=== PATIENT | male | born 1975 | race Caucasian/White ===

== ENCOUNTER 2017-07-05 14:58 | Inpatient (IN) | payer MEDICAID ==
[~2017-07-05] VITALS: Ht 167.6 cm; Wt 123.4 kg
[2017-07-05 15:09] VITALS: BP 153/101
--- NOTE | 2017-07-05 15:28 | NUR ---
Patient ambulated to bed 3.
--- NOTE | 2017-07-05 15:34 | NUR ---
Patient being evaluated by physician at bedside.
[2017-07-05] MEDS ORDERED: NACL 0.9% 3,000 ML IV ONE (15:35)
[2017-07-05] MEDS ORDERED: INSULIN HUMAN REGULAR 100 UNITS/ML 10 ML VIAL SUBQ ONE (15:35)
--- NOTE | 2017-07-05 15:41 | NUR ---
ABG DRAWN ON RA ON LR WITHOUT INCIDENT AND AT 1550 RESULTS GIVEN TO
--- NOTE | 2017-07-05 15:41 | NUR ---
RT at bedside for ABG
--- NOTE | 2017-07-05 15:44 | NUR ---
XRAY AT BEDSIDE.
--- NOTE | 2017-07-05 15:52 | NUR ---
LAB AND GABRIELA GEORGES SECHRIST AWARE OF ACCHECK READING OF "HIGH"
--- NOTE | 2017-07-05 16:02 | NUR ---
41M BIB SELF C/O CONSTANT THIRST AND BLURRED VISION X 4 DAYS; PATIENT DENIES OF ANY MEDICAL HISTORY; ACCHECK IN TRIAGE READ HIGH; SKIN IS PINK/WARM/DRY; AAOX4 WITH EVEN AND STEADY GAIT; NO ACUTE NEURO DEFICITS NOTED; RR ARE EVEN AND UNLABORED; LUNGS CLEAR BL; HR EVEN AND REGULAR; ABD SOFT AND NON TENDER; DENIES N/V/D; PT DENIES ANY FEVER, CP, SOB, OR COUGH AT THIS TIME; PATIENT STATES PAIN OF 0/10 AT THIS TIME; VSS; PATIENT POSITIONED FOR COMFORT; HOB ELEVATED; ALL NEEDS MET AT THIS TIME; ER MD AWARE OF PT STATUS
[2017-07-05 16:25] LABS: HEMATOCRIT 40.6 % (36-52); HEMOGLOBIN 15.9 g/dL (12.0-18.0); MEAN CORPUSCULAR HEMOGLOBIN 31 pg (27-31); MEAN CORPUSCULAR HGB CONC 39 g/dL (33-37); MEAN CORPUSCULAR VOLUME 78 fL (80-94); PLATELET COUNT (AUTO) 280 K/uL (140-450); RED CELL DISTRIBUTION WIDTH 12.6 % (11.6-13.7); WHITE BLOOD COUNT (AUTO) 7.2 K/uL (4.8-10.8)
[2017-07-05 16:40] LABS: BARBITURATE, URINE NEG. ng/ml (NEG <=200); BENZODIAZEPINE, URINE NEG. ng/mL (NEG <=200); CANNABINOID, URINE NEG. ng/mL (NEG <=50); COCAINE, URINE NEG. ng/mL (NEG <=300); OPIATE, URINE NEG. ng/mL (NEG <=2000); PHENCYCLIDINE SCREEN,URINE NEG. ng/mL (NEG <=25)
--- NOTE | 2017-07-05 16:42 | NUR ---
LAB ON PHONE WITH MD OCHOA SECHRIST REGARDING SERUM BLOOD GLUCOSE; EMR ANALYST REPORTS SERUM BLOOD GLUCOSE "TOO MILKY" FOR ACCURANCE READING
[2017-07-05 16:51] LABS: LYMPHOCYTES % (MANUAL) 35 % (20-46); MONOCYTES % (MANUAL) 4 % (5-12)
[2017-07-05 17:06] LABS: APPEARANCE,URINE CLEAR (CLEAR); BILIRUBIN,URINE NEGATIVE (NEGATIVE); BLOOD, URINE TRACE-L (NEGATIVE); COLOR,URINE YELLOW (YELLOW); LEUKOCYTE ESTERASE ,URINE NEGATIVE (NEGATIVE); NITRITE, URINE NEGATIVE (NEGATIVE); UGLUCOSE 3+ (NEGATIVE)
[2017-07-05 17:37] LABS: RBC,URINE 0-5 (RARE) /HPF (0-5); WBC,URINE 0-5 (RARE) /HPF (0-5)
[2017-07-05] MEDS ORDERED: ACETAMINOPHEN 325 MG TAB PO PRN (18:10)
[2017-07-05] MEDS ORDERED: HYDROcodone/APAP 5/325 MG 1 TAB TAB PO PRN (18:10)
[2017-07-05] MEDS ORDERED: ONDANSETRON 4 MG/2 ML VIAL IVP PRN (18:10)
[2017-07-05] MEDS ORDERED: LORazepam 2 MG/ML VIAL IVP PRN (18:10)
[2017-07-05] MEDS ORDERED: DEXTROSE 50% 50 ML SYR IVP PRN (18:10)
--- NOTE | 2017-07-05 18:11 | NUR ---
attemped to give report; kaley rn will call back "after discharge"; will follow up
--- NOTE | 2017-07-05 18:28 | NUR ---
Patient will be admitted to care of [facility]. Admited to Med Surg. Will go to room 106B. Belongings list completed. Report to Kathya SAUNDERS.
[2017-07-05 18:50] VITALS: BP 155/97
--- NOTE | 2017-07-05 18:50 | NUR ---
RECEIVED PT FROM ER, AAOX4, LATVIAN SPEAKING ONLY. NO SOB NOTED. NO C/O PAIN AT THIS TIME. STABLE VITAL SIGNS. WILL ENDORSE TO NEXT SHIFT NURSE TO START THE ADMISSION PROCESS.
--- NOTE | 2017-07-05 19:00 | NUR ---
RECEIVED REPORT FROM AM NURSE. Admitted from ER, with chief complaint of INCREASED THIRST, URINARY FREQUENCY, BURNING TO EYE FOR 4 DAYS. 41 y/o, Male, RESTING IN BED, AOX4, QATARI SPEAKING WITH LITTLE MARTINIQUAIS, ABLE TO VERBALIZE NEEDS. NURSE EPIDEMIOLOGIST SERVICE USED DURING ADMISSION PROCESS, STEVENSON [id number]. PT DENIES CHEST PAIN, SOB OR S/S OF ACUTE DISTRESS. IV ACCESS ASYMPTOMATIC, PATENT AND INTACT. SALINE LOCKED. DISCUSSED AND REVIEWED PLAN OF CARE WITH PT. PT VERBALIZED UNDERSTANDING. oriented to call light, bed, phone,television, bathroom, smoking policy, visiting hours, procedures, ID bracelet on. Belongings list checked. ALL NEEDS MET. SAFETY MEASURES ENSURED. CALL LIGHT WITHIN REACH. WILL CONTINUE TO MONITOR.
[2017-07-05 20:00] VITALS: BP 135/79
[2017-07-05] MEDS: BLOOD GLUCOSE MONITORING 1 DEV DEV FS SCH (21:12)
[2017-07-05] MEDS: LISINOPRIL 10 MG TAB PO SCH (21:12)
[2017-07-05] MEDS: INSULIN LISPRO SLIDING SCALE 100 UNITS/ML VIAL SUBQ PRN (21:51)
--- NOTE | 2017-07-05 21:51 | NUR ---
ADMINISTERED DUE MEDICATIONS WITH EDUCATION. INSULIN COVERAGE ADMINISTERED WITH EVENING SNACK. PT VERBALIZED UNDERSTANDING, TOLERATED MEDS WELL. ALL NEEDS MET. SAFETY MEASURES ENSURED. CALL LIGHT WITHIN REACH. WILL CONTINUE TO MONITOR.
[2017-07-05 22:13] LABS: CHLORIDE 96 mmol/L (98-107); POTASSIUM 4.1 mmol/L (3.5-5.1); SODIUM SERUM 130 mmol/L (136-145)
[2017-07-05 22:14] LABS: ANION GAP 19.1 (8-16)
[2017-07-05 22:15] LABS: GFR ARICAN-AMERICAN 107 mL/min (>90); GLUCOSE 562 mg/dL (74-106); UREA NITROGEN, BLOOD 14 mg/dL (7-18)
[2017-07-05 22:16] LABS: ALBUMIN 4.6 g/dL (3.4-5.0); ASPARTATE AMINOTRANSFERASE 50 U/L (15-37); LIPASE 24 U/L (73-393); TOTAL BILIRUBIN > 0.1 mg/dL (0.0-1.0)
--- NOTE | 2017-07-05 23:00 | NUR ---
CALLED DR ESPINOZA, MADE AWARE OF LACTIC ACID 2.6, BMP RESULTS FROM TIME 1515: SODIUM 130, CHLORIDE 96, AND GLUCOSE 562. MADE MD AWARE RECENT BLOOD GLUCOSE WAS 329, WITH INSULIN COVERAGE ADMINISTERED. AND THAT THERE IS NO MAINTENANCE FLUIDS ORDERED AT THIS TIME. ORDERS RECEIVED FOR NS AT 100ML. ORDERS PENDING, WILL CARRY OUT.
[2017-07-05] MEDS: NACL 0.9% 1,000 ML IV SCH (23:12)
[2017-07-06] VITALS: BP 128/72
--- NOTE | 2017-07-06 01:00 | NUR ---
PT SLEEPING COMFORTABLY. NO S/S OF ACUTE DISTRESS. ALL NEEDS MET. SAFETY MEASURES ENSURED. CALL LIGHT WITHIN REACH. WILL CONTINUE TO MONITOR.
[2017-07-06] MEDS ORDERED: PNEUMOCOCCAL VACCINE 23 MCG/0.5 ML VIAL IMVAC SCH (04:10)
--- NOTE | 2017-07-06 04:30 | NUR ---
PT SLEEPING COMFORTABLY. NO S/S OF ACUTE DISTRESS. ALL NEEDS MET. SAFETY MEASURES ENSURED. CALL LIGHT WITHIN REACH. WILL CONTINUE TO MONITOR.
[2017-07-06 06:29] LABS: HEMATOCRIT 35.9 % (36-52); HEMOGLOBIN 13.3 g/dL (12.0-18.0); MEAN CORPUSCULAR HEMOGLOBIN 29 pg (27-31); MEAN CORPUSCULAR HGB CONC 37 g/dL (33-37); MEAN CORPUSCULAR VOLUME 80 fL (80-94); PLATELET COUNT (AUTO) 203 K/uL (140-450); RED BLOOD CELL COUNT(AUTO) 4.51 MIL/uL (4.20-6.10); WHITE BLOOD COUNT (AUTO) 6.4 K/uL (4.8-10.8)
[2017-07-06] MEDS: BLOOD GLUCOSE MONITORING 1 DEV DEV FS SCH ×4 (06:42→20:47)
[2017-07-06] MEDS: INSULIN LISPRO SLIDING SCALE 100 UNITS/ML VIAL SUBQ PRN ×4 (06:43→20:19)
--- NOTE | 2017-07-06 06:50 | NUR ---
PNA VAC ADMINISTERED WITH EDUCATION ORDERED. INSULIN COVERAGE ADMINISTERED ORDERED. PT VERBALIZED UNDERSTANDING, TOLERATED MEDS WELL. PT ABLE TO AMBULATE TO THE RESTROOM INDEPENDENTLY. ALL NEEDS MET.
[2017-07-06] MEDS: GEMFIBROZIL 600 MG TAB PO SCH ×2 (07:11→16:35)
--- NOTE | 2017-07-06 07:12 | NUR ---
ENDORSED PLAN OF CARE TO AM NURSE. CONDITION STABLE.
[2017-07-06 07:14] LABS: EOSINOPHILS % (MANUAL) 3 % (0-4); LYMPHOCYTES % (MANUAL) 29 % (20-46); MONOCYTES % (MANUAL) 4 % (5-12)
--- NOTE | 2017-07-06 07:28 | NUR ---
RECEIVED REPORT FROM PM RN. PT AWAKE, ALERT AND ORIENTED. RESP EVEN AND UNLABORED. PT DENIES PAIN OR DISCOMFORT. NO S/S OF DISTRESS, SHORTNESS OF BREATH, OR RESTLESSNESS. IV INTACT INFUSING AT 100 ML/HR, NO SIGN OF SWELLING OR REDNESS. DISCUSSED PLAN OF CARE, PT VERBALIZED UNDERSTANDING. SAFETY MEASURES IN PLACED. BED LOCKED ON LOW POSITION. CALL LIGHT WITHIN REACH. WILL CONTINUE TO MONITOR.
[2017-07-06 08:00] VITALS: BP 131/84
[2017-07-06] MEDS ORDERED: metFORMIN 500 MG TAB PO SCH (08:00)
--- NOTE | 2017-07-06 08:05 | NUR ---
PATIENT HAS BEEN SCREENED AND CATEGORIZED HIGH NUTRITION RISK. PATIENT WILL BE SEEN WITHIN 1-2 DAYS OF ADMISSION. 07/05/17-07/06/[address]
[2017-07-06] MEDS: HYDROCHLOROTHIAZIDE 25 MG TAB PO SCH (08:33)
[2017-07-06] MEDS ORDERED: PIOGLITAZONE 30 MG TAB PO SCH ×2 (09:00)
[2017-07-06] MEDS: NACL 0.9% 1,000 ML IV SCH ×3 (09:37→23:17)
--- NOTE | 2017-07-06 10:48 | NUR ---
PT RESTING COMFORTABLY. FAMILY AT BEDSIDE. NO SIGNS OF RESTLESSNESS, SHORTNESS OF BREATH, OR DISTRESS. DENIES PAIN. SAFETY MEASURES IN PLACED. BED ON LOCKED, LOW POSITION. CALL LIGHT WITHIN REACH. SIDE RAILS UP. WILL CONTINUE TO MONITOR.
--- NOTE | 2017-07-06 11:44 | NUR ---
PT BLOOD SUGAR AT 402. PT AAO. NO SIGNS OF DISTRESS. DR Maru ESPINOZA PAGED PER SLIDING SCALE ORDERED.
--- NOTE | 2017-07-06 12:05 | NUR ---
PAGED DR Maru ESPINOZA AGAIN PER PROTOCOL. AWAITING CALL BACK.
--- NOTE | 2017-07-06 12:12 | NUR ---
DR Maru ESPINOZA CALLED BACK, STATED TO CALL DR CARROLL FOR FURTHER INSTRUCTIONS.
--- NOTE | 2017-07-06 12:16 | NUR ---
PAGED DR CARROLL PER DR ESPINOZA. AWAITING CALL BACK.
--- NOTE | 2017-07-06 12:27 | NUR ---
REPEAT BLOOD GLUCOSE 389. WILL GIVE INSULIN PER SLIDING SCALE.
--- NOTE | 2017-07-06 15:04 | NUR ---
07/06/17 RD INITIAL ASSESSMENT COMPLETED PLEASE REFER TO NUTRITION ASSESSMENT UNDER CARE ACTIVITY FOR ESTIMATED NUTRITIONAL NEEDS. 1. CONTINUE 60 GM CONSISTENT CARBOHYDRATE DIET 2. PROVIDE NUTRITION THERAPY EDUCATION NEEDED 3. RD TO FOLLOW UP WITHIN 2-3 DAYS; HIGH RISK LESVIA [address]
--- NOTE | 2017-07-06 15:12 | NUR ---
PT SITTING WATCHING TV. DENIES PAIN OR DISCOMFORT. NO S/S OF DISTRESS, SHORTNESS OF BREATH, OR RESTLESSNESS. SAFETY MEASURE IN PLACED. WILL CONTINUE TO MONITOR.
[2017-07-06] MEDS ORDERED: INSULIN DETEMIR 100 UNITS/ML 10 ML VIAL SUBQ SCH (15:59)
[2017-07-06 16:00] VITALS: BP 117/70
--- NOTE | 2017-07-06 16:04 | NUR ---
DR CARROLL AT BEDSIDE.
[2017-07-06] MEDS: metFORMIN 500 MG TAB PO SCH (16:35)
--- NOTE | 2017-07-06 18:36 | NUR ---
PT EATING. DENIES PAIN OR DISCOMFORT. NO S/S OF DISTRESS, SOB, RESTLESSNESS. IV FLUID CONTINUOS, SITE WNL. RESP EVEN AND UNLABORED. WILL CONTINUE TO MONITOR.
[2017-07-06 19:06] LABS: POTASSIUM 3.9 mmol/L (3.5-5.1)
[2017-07-06 19:07] LABS: ANION GAP 17.9 (8-16)
[2017-07-06 19:08] LABS: CREATININE 0.4 mg/dL (0.7-1.3)
[2017-07-06 19:09] LABS: MAGNESIUM 1.6 mg/dL (1.8-2.4); PHOSPHORUS 2.9 mg/dL (2.5-4.9)
--- NOTE | 2017-07-06 19:38 | NUR ---
RECEIVED PT ON BED TALKING TO FAMILY MEMBERS AT BEDSIDE, VITAL SIGNS STABLE, DENIES ANY PAIN, IVF INFUSING WELL, POC DISCUSSED, CALL LIGHT WITHIN REACH.
--- NOTE | 2017-07-06 19:38 | NUR ---
PT ENDORSED TO PM NURSE FOR CONTINUITY OF CARE. PT IS STABLE.
[2017-07-06] MEDS: LISINOPRIL 10 MG TAB PO SCH (20:17)
--- NOTE | 2017-07-06 20:20 | NUR ---
BLOOD SUGAR CHECKED WITH 321 RESULT,COVERAGE GIVEN, SNACK PROVIDED, DUE PO MEDICATION TAKEN, ALL NEEDS ATTENDED.
[2017-07-07] VITALS: BP 128/74
--- NOTE | 2017-07-07 | NUR ---
PT SLEEPING, EASILY AROUSABLE, VITAL SIGNS STABLE, DENIES ANY PAIN OR SOB, IVF INFUSING WELL, CONTINUE TO MONITOR CLOSELY.
--- NOTE | 2017-07-07 03:00 | NUR ---
ROUNDED ON PT, SLEEPING, NO SIGNS OF DISTRESS, MONITORED CLOSELY.
[2017-07-07] MEDS: NACL 0.9% 1,000 ML IV SCH ×2 (05:00→15:00)
--- NOTE | 2017-07-07 05:20 | NUR ---
PT AMBULATED TO BR WITH STEADY GAIT, VOIDED FREELY, URINE SPECIMEN SENT TO LAB FOR UDS TEST, BLOOD SUGAR CHECKED WITH 301 RESULT, WILL GIVE COVERAGE, PT DENIES ANY PAIN AND SOB, IVF INFUSING WELL, MONITORED CLOSELY.
[2017-07-07 06:28] LABS: HEMATOCRIT 40.2 % (36-52); HEMOGLOBIN 13.7 g/dL (12.0-18.0); MEAN CORPUSCULAR HEMOGLOBIN 27 pg (27-31); MEAN CORPUSCULAR HGB CONC 34 g/dL (33-37); MEAN CORPUSCULAR VOLUME 79 fL (80-94); PLATELET COUNT (AUTO) 219 K/uL (140-450); RED BLOOD CELL COUNT(AUTO) 5.07 MIL/uL (4.20-6.10); RED CELL DISTRIBUTION WIDTH 13.1 % (11.6-13.7); WHITE BLOOD COUNT (AUTO) 6.9 K/uL (4.8-10.8)
[2017-07-07 06:30] LABS: BARBITURATE, URINE NEG. ng/ml (NEG <=200); BENZODIAZEPINE, URINE NEG. ng/mL (NEG <=200); CANNABINOID, URINE NEG. ng/mL (NEG <=50); COCAINE, URINE NEG. ng/mL (NEG <=300); OPIATE, URINE NEG. ng/mL (NEG <=2000); PHENCYCLIDINE SCREEN,URINE NEG. ng/mL (NEG <=25)
[2017-07-07] MEDS: GEMFIBROZIL 600 MG TAB PO SCH ×2 (06:45→16:35)
[2017-07-07] MEDS: INSULIN LISPRO SLIDING SCALE 100 UNITS/ML VIAL SUBQ PRN ×4 (06:48→21:35)
[2017-07-07] MEDS: BLOOD GLUCOSE MONITORING 1 DEV DEV FS SCH ×4 (06:49→21:32)
--- NOTE | 2017-07-07 06:50 | NUR ---
DUE PO MEDICATION TAKEN, COVERAGE OF 8 UNITS GIVEN FOR BS OF 301, IVF INFUSING WELL, MONITORED CLOSELY.
--- NOTE | 2017-07-07 07:25 | NUR ---
PT SLEEPING, NO SIGNS OF DISTRESS, REPORT GIVEN TO RN ALEJANDRO FOR CONTINUITY OF CARE.
--- NOTE | 2017-07-07 07:30 | NUR ---
RECEIVED REPORT FROM PM RN. PT SLEEPING AROUSES EASILY. RESP EVEN AND UNLABORED. PT DENIES PAIN OR DISCOMFORT. NO S/S OF DISTRESS, SHORTNESS OF BREATH, OR RESTLESSNESS. IV INTACT INFUSING AT 100 ML/HR, NO SIGN OF SWELLING OR REDNESS. SKIN IS INTACT, WARM AND DRY. DISCUSSED PLAN OF CARE, PT VERBALIZED UNDERSTANDING. SAFETY MEASURES IN PLACED. BED LOCKED ON LOW POSITION. CALL LIGHT WITHIN REACH. WILL CONTINUE TO MONITOR
[2017-07-07 07:33] LABS: EOSINOPHILS % (MANUAL) 2 % (0-4); LYMPHOCYTES % (MANUAL) 33 % (20-46); MONOCYTES % (MANUAL) 6 % (5-12)
[2017-07-07 08:00] VITALS: BP 136/79
[2017-07-07] MEDS: PIOGLITAZONE 15 MG TAB PO SCH (08:37)
[2017-07-07] MEDS: HYDROCHLOROTHIAZIDE 25 MG TAB PO SCH (08:37)
[2017-07-07] MEDS: metFORMIN 500 MG TAB PO SCH ×3 (08:37→16:35)
[2017-07-07] MEDS: INSULIN DETEMIR 100 UNITS/ML 10 ML VIAL SUBQ SCH (08:40)
--- NOTE | 2017-07-07 09:38 | NUR ---
PT SITTING, FAMILY AT BEDSIDE. NO S/S OF DISTRESS, SOB, OR RESTLESSNESS. DENIES PAIN OR DISCOMFORT. SAFETY MEASURES IN PLACED. CALL LIGHT WITHIN REACH. WILL CONTINUE TO MONITOR.
--- NOTE | 2017-07-07 10:35 | NUR ---
NEW ONSET TYPE2 DIABETES TEACHING DONE VIA TELEPHONE FLOOR MANAGER #[id number], HAND OUTS GIVEN - TYPE2 DIABETES MELITIS, DIABETES AND EXERCISE, DIABETES MELITIS AND FOOD, HOW TO AVOID DIABETES PROBLEMS, TIPS FOR EATING AWAY FROM HOME IF YOU HAVE DIABETES. MEDICATION INFORMATION FOR LEVEMIRE, METFORMIN AND PIOGLITAZONE. PT VERBALIZED FULL UNDERSTANDING. PT GIVEN OPPORTUNITY TO ASK QUESTIONS.
--- NOTE | 2017-07-07 11:05 | NUR ---
CM NOTE CHART REVIEW DONE. DIABETIC TEACHING FOR NEW ONSET DIABETES DONE BY NURSE BEDSIDE. SEEN BY PROTEIN SPECIALIST BEDSIDE AND IMPORTANCE OF FOLLOW UP WITH PHYSICIAN, OBTAINING BLOOD GLUCOSE MONITOR EMPHASIZED.
--- NOTE | 2017-07-07 12:15 | NUR ---
DR ESPINOZA AT BEDSIDE
--- NOTE | 2017-07-07 13:20 | NUR ---
PT'S FAMILY MEMBER AT BEDSIDE. PT EATING LUNCH BROUGHT FROM HOME. NO S/S DISTRESS. DENIES PAIN OR DISCOMFORT. SAFETY MEASURES IN PLACED. WILL CONTINUE TO MONITOR. Addendum: 07/07/17 at 1325 by Tari Neal RN DISREGARD ABOVE NOTE. ENTERED IN WRONG PT.
--- NOTE | 2017-07-07 13:25 | NUR ---
PT SITTING WATCHING TV. DENIES PAIN OR DISCOMFORT. NO S/S DISTRESS. SAFETY MEASURE IN PLACED. WILL CONTINUE TO MONITOR.
--- NOTE | 2017-07-07 15:30 | NUR ---
PT IN BED, RESTING COMFORTABLY. DENIES DISCOMFORT OR NEEDS. NO S/S DISTRESS, SOB, OR RESTLESSNESS. SAFETY MEASURES IN PLACED. CALL LIGHT WITHIN REACH. BED ON LOW POSITION. SIDE RAILS UP. WILL CONTINUE TO MONITOR.
[2017-07-07 16:00] VITALS: BP 133/95
[2017-07-07] MEDS ORDERED: MAG SULF 2000 MG/WATER PREMIX 50 ML IV SCH (16:00)
--- NOTE | 2017-07-07 17:50 | NUR ---
FAMILY MEMBER AT BEDSIDE. PT DENIES PAIN OR NEEDS. NO S/S OF DISTRESS. SAFETY MEASURES IN PLACED. WILL CONTINUE TO MONITOR.
[2017-07-07 18:04] LABS: CREATININE 0.8 mg/dL (0.7-1.3)
[2017-07-07 18:05] LABS: ANION GAP 13.9 (8-16); POTASSIUM 3.9 mmol/L (3.5-5.1)
--- NOTE | 2017-07-07 19:22 | NUR ---
ENDORSED CARE TO PM NURSE FOR CONTINUITY OF CARE. PT IS STABLE
--- NOTE | 2017-07-07 19:23 | NUR ---
RECD. RESTING IN BED, AWAKE, A/OX4, OBESE. RESPIRATION EVEN AND UNLABORED. IV OF NS AT 100 ML/HR INFUSING RIGHT AC G20. CONVERSING WITH VISITORS AT THE BEDSIDE. PLAN OF CARE FOR THE SHIFT DISCUSSED. VERBALIZED UNDERSTANDING. DENIES PAIN 0/10.
--- NOTE | 2017-07-07 20:00 | NUR ---
Patient's Plan of Care was discussed and reviewed with SUPPORT WORKER: DYAN
[2017-07-07] MEDS: LISINOPRIL 10 MG TAB PO SCH (21:31)
--- NOTE | 2017-07-07 21:32 | NUR ---
SNACK GIVEN FOR THE NIGHT. ENCOURAGE TO EXERCISE, INQUIRE ON MD WHAT KIND HE CAN DO AND TO EAT HEALTHY, MORE ON FRUITS AND VEGETABLES, AVOID FOODS HIGH IN SUGAR CONTENT LIKE PASTRIES, CAKES, PUDDINGS, SODA. VERBALIZED UNDERSTANDING.
--- NOTE | 2017-07-07 23:45 | NUR ---
SLEEPING COMFORTABLY, SNORING IN BED.
[2017-07-08] VITALS: BP 135/75
[2017-07-08] MEDS: NACL 0.9% 1,000 ML IV SCH ×4 (00:18→22:59)
--- NOTE | 2017-07-08 04:47 | NUR ---
VS STABLE. NO COMPLAINT OF CHEST PAIN 0/10,
[2017-07-08 07:15] LABS: HEMATOCRIT 38.1 % (36-52); HEMOGLOBIN 13.1 g/dL (12.0-18.0); MEAN CORPUSCULAR HEMOGLOBIN 27 pg (27-31); MEAN CORPUSCULAR HGB CONC 34 g/dL (33-37); MEAN CORPUSCULAR VOLUME 78 fL (80-94); PLATELET COUNT (AUTO) 211 K/uL (140-450); RED BLOOD CELL COUNT(AUTO) 4.87 MIL/uL (4.20-6.10); RED CELL DISTRIBUTION WIDTH 13.3 % (11.6-13.7)
--- NOTE | 2017-07-08 07:20 | NUR ---
RECEIVED REPORT FROM HAND WASHER NURSE, PT IS RESTING IN BED, A/OX4, AMBULATORY, IV IS ON THE RIGHT AC, PATENT, INTACT, FLUSHING WELL, NO S/S OF RESPIRATORY DISTRESS OR DISCOMFORT NOTED, DISCUSSED PLAN OF CARE WITH PT, PT VERBALIZED UNDERSTANDING, SAFETY/FALL PRECAUTIONS ARE IN PLACE, CALL LIGHT IS WITHIN REACH, WILL CONTINUE TO MONITOR.
[2017-07-08] MEDS: GEMFIBROZIL 600 MG TAB PO SCH ×2 (07:30→17:01)
[2017-07-08] MEDS: BLOOD GLUCOSE MONITORING 1 DEV DEV FS SCH ×4 (07:30→20:38)
[2017-07-08 07:53] LABS: EOSINOPHILS % (MANUAL) 5 % (0-4); LYMPHOCYTES % (MANUAL) 18 % (20-46); MONOCYTES % (MANUAL) 2 % (5-12)
[2017-07-08 08:00] VITALS: BP 141/73
[2017-07-08 08:50] LABS: ANION GAP 14.8 (8-16); CARBON DIOXIDE 24.6 mmol/L (21-32); CREATININE 0.8 mg/dL (0.7-1.3); POTASSIUM 3.4 mmol/L (3.5-5.1)
--- NOTE | 2017-07-08 09:00 | NUR ---
DUE MEDICATIONS GIVEN, PT TOLERATED WELL, ALL SAFETY PRECAUTIONS MET, CALL LIGHT WITHIN REACH, WILL CONTINUE TO MONITOR.
[2017-07-08] MEDS: metFORMIN 500 MG TAB PO SCH ×3 (09:10→17:01)
[2017-07-08] MEDS: INSULIN DETEMIR 100 UNITS/ML 10 ML VIAL SUBQ SCH (09:19)
[2017-07-08] MEDS: PIOGLITAZONE 15 MG TAB PO SCH (09:21)
[2017-07-08] MEDS: HYDROCHLOROTHIAZIDE 25 MG TAB PO SCH (09:25)
[2017-07-08] MEDS ORDERED: POTASSIUM CHLORIDE 10 MEQ TABER PO SCH (09:35)
--- NOTE | 2017-07-08 10:15 | NUR ---
ECHO DONE ON 07/08/17
--- NOTE | 2017-07-08 10:36 | NUR ---
07/08/17 RD FOLLOW-UP ASSESSMENT COMPLETED PLEASE REFER TO NUTRITION ASSESSMENT UNDER CARE ACTIVITY FOR ESTIMATED NUTRITIONAL NEEDS. 1. CONTINUE 60G CONSISTENT CARBOHYDRATE DIET 2. CONTINUE TO PROVIDE NUTRITION THERAPY EDUCATION NEEDED 3. RD TO FOLLOW-UP 3-5 DAYS, MODERATE RISK LESVIA [address]ARD, DEREK
--- NOTE | 2017-07-08 11:09 | NUR ---
PTS POTASSIUM WAS 3.4 ADMINISTERED MEDICATION PER MD ORDER. ALL SAFETY PRECAUTIONS MET, CALL LIGHT WITHIN REACH WILL CONTINUE TO MONITOR.
[2017-07-08] MEDS: INSULIN LISPRO SLIDING SCALE 100 UNITS/ML VIAL SUBQ PRN ×3 (12:20→20:39)
--- NOTE | 2017-07-08 12:22 | NUR ---
CHECKED IN ON PT. PT RESTING COMFORTABLY IN BED. FAMILY AT BEDSIDE, ALL SAFETY PRECAUTIONS IN PLACE, CALL LIGHT WITHIN REACH, WILL CONTINUE TO MONITOR
--- NOTE | 2017-07-08 14:30 | NUR ---
CHECKED IN ON PT, OT RESTING COMFORTABLY IN BED. NO S/S OF DISTRESS NOTED. ALL SAFETY PRECAUTIONS MET, CALL LIGHT WITHIN REACH, WILL CONTINUE TO MONITOR.
[2017-07-08 16:00] VITALS: BP 100/70
--- NOTE | 2017-07-08 16:55 | NUR ---
CHECKED IN ON PT. TOOK PTS VITALS, VITALS STABLE, NO S/S OF DISTRESS NOTED. ALL SAFETY PRECAUTIONS MET, CALL LIGHT WITHIN REACH, WILL CONTINUE TO MONITOR.
--- NOTE | 2017-07-08 17:04 | NUR ---
DUE MEDICATIONS GIVEN, PT TOLERATED WELL, ALL SAFETY PRECAUTIONS MET, CALL LIGHT WITHIN REACH, WILL CONTINUE TO MONITOR.
--- NOTE | 2017-07-08 18:52 | NUR ---
PTS ORAL INTAKE FOR SHIFT 7AM TO 7AM: 360 MLS. PT IV FLUIDS: 1200. TOTAL FLUID INTAKE FOR SHIFT: 1560. PT VOIDED URINE 3 TIMES AND HAD ONE BM DURING THE SHIFT. PT IS CONTINENT AND TAKES HIMSELF TO THE BATHROOM.
--- NOTE | 2017-07-08 19:30 | NUR ---
ENDORSED PT TO FUR SCRAPER NURSE, CHIP RIVERA. FOR CONTINUITY OF CARE, PT STABLE AT THIS TIME.
--- NOTE | 2017-07-08 19:35 | NUR ---
RECEIVED REPORT FROM AM NURSE. PT IS STABLE, AWAKE, ALERT AND ORIENTED X4. ON ROOM AIR, IV ACCESS ON RIGHT AC 20G. PT IS AMBULATORY, MED SURG PT. PLAN OF CARE DISCUSSED, PT VERBALIZED UNDERSTANDING. BED ON LOW POSITION, CALL LIGHT WITHIN REACH. WILL CONTINUE TO MONITOR.
[2017-07-08 20:00] VITALS: BP 128/78
--- NOTE | 2017-07-08 20:20 | NUR ---
IV LINE ON RIGHT AC INFILTRATED, NEW IV ACCESS STARTED ON RIGHT HAND 22G.
[2017-07-08] MEDS: LISINOPRIL 10 MG TAB PO SCH (20:44)
[2017-07-09 00:05] VITALS: BP 139/80
--- NOTE | 2017-07-09 04:02 | NUR ---
MADE ROUNDS. PT IS SLEEPING, SHOWING NO S/S OF DISCOMFORT. WILL CONTINUE TO MONITOR.
[2017-07-09 05:56] LABS: BASOPHILS % (AUTO) 0.9 % (0.0-2.0); EOSINOPHILS # (AUTO) 0.1 K/uL (0-0.4); EOSINOPHILS % (AUTO) 1.4 % (0.0-4.0); HEMATOCRIT 40.6 % (36-52); HEMOGLOBIN 13.5 g/dL (12.0-18.0); LYMPHOCYTES # (AUTO) 1.5 K/uL (2.0-11.5); LYMPHOCYTES % (AUTO) 26.8 % (20.5-51.1); MEAN CORPUSCULAR HEMOGLOBIN 26 pg (27-31); MEAN CORPUSCULAR HGB CONC 33 g/dL (33-37); MEAN CORPUSCULAR VOLUME 79 fL (80-94); MONOCYTES # (AUTO) 0.5 K/uL (0.8-1.0); MONOCYTES % (AUTO) 8.3 % (1.7-9.3); NEUTROPHILS # (AUTO) 3.4 K/uL (1.8-7.7); NEUTROPHILS % (AUTO) 62.6 % (42.2-75.2); PLATELET COUNT (AUTO) 206 K/uL (140-450); RED BLOOD CELL COUNT(AUTO) 5.16 MIL/uL (4.20-6.10); RED CELL DISTRIBUTION WIDTH 13.1 % (11.6-13.7); WHITE BLOOD COUNT (AUTO) 5.5 K/uL (4.8-10.8)
[2017-07-09 06:10] LABS: ANION GAP 12.3 (8-16); CARBON DIOXIDE 24.3 mmol/L (21-32); CREATININE 0.8 mg/dL (0.7-1.3); POTASSIUM 3.6 mmol/L (3.5-5.1)
[2017-07-09] MEDS: BLOOD GLUCOSE MONITORING 1 DEV DEV FS SCH ×4 (06:31→20:12)
[2017-07-09] MEDS: INSULIN LISPRO SLIDING SCALE 100 UNITS/ML VIAL SUBQ PRN ×4 (06:34→20:17)
[2017-07-09] MEDS: GEMFIBROZIL 600 MG TAB PO SCH ×2 (06:35→16:28)
[2017-07-09] MEDS: NACL 0.9% 1,000 ML IV SCH ×3 (07:00→18:33)
--- NOTE | 2017-07-09 07:30 | NUR ---
RECEIVED PT IN BED. AWAKE, ALERT ORIENTED X4. NO SOB NOTED. DENIES ANY PAIN OR DISCOMFORT AT THIS TIME. POSITIVE BOWEL SOUNDS NOTED ON FOUR QUADRANTS. PT AMBULATORY. SAFETY PRECAUTION IN PLACE. CALL LIGHT WITHIN REACH.
--- NOTE | 2017-07-09 07:35 | NUR ---
ENDORSED PT TO AM NURSE. PT IN STABLE CONDITION.
[2017-07-09 08:00] VITALS: BP 137/88
[2017-07-09] MEDS: PIOGLITAZONE 15 MG TAB PO SCH (08:26)
[2017-07-09] MEDS: metFORMIN 500 MG TAB PO SCH ×3 (08:26→16:28)
[2017-07-09] MEDS: HYDROCHLOROTHIAZIDE 25 MG TAB PO SCH (08:26)
[2017-07-09] MEDS: INSULIN DETEMIR 100 UNITS/ML 10 ML VIAL SUBQ SCH (08:30)
--- NOTE | 2017-07-09 12:48 | NUR ---
PT AWAKE AT THIS TIME. NO SOB NOTED. DENIES ANY PAIN OR DISCOMFORT AT THIS TIME. PT WATCHING TV.
[2017-07-09 16:00] VITALS: BP 140/75
--- NOTE | 2017-07-09 19:10 | NUR ---
RECEIVED PATIENT FROM AM NURSE. PT IS AOX4, NO COMPLAINTS OF PAIN, NO S/S OF DISTRESS NOTED. WITH AN IV TO THE RIGHT HAND 22 G INTACT AND PATENT. IS AMBULATORY. WITH POSITIVE BOWEL SOUNDS ON ALL FOUR QUADRANTS. DISCUSSED PLAN OF CARE WITH PATIENT, VERBALIZED UNDERSTANDING. WILL CONTINUE TO MONITOR. ALL NEEDS ATTENDED. CALL LIGHT WITHIN REACH. SAFETY CHECKS IN PLACE.
--- NOTE | 2017-07-09 19:39 | NUR ---
PT KEPT CLEAN, DRY AND COMFORTABLE, NEEDS ATTENDED. ENDORSED TO NEXT SHIFT ON STABLE CONDITION FOR CONTINUITY OF CARE.
[2017-07-09 20:09] VITALS: BP 132/72
[2017-07-09] MEDS: LISINOPRIL 10 MG TAB PO SCH (20:13)
--- NOTE | 2017-07-09 20:15 | NUR ---
DUE MEDS GIVEN. WELL TOLERATED BY PATIENT. NO S/S OF DISTRESS. NO COMPLAINTS OF PAIN. WILL CONTINUE TO MONITOR. ALL NEEDS ATTENDED. CALL LIGHT WITHIN REACH.
--- NOTE | 2017-07-09 21:51 | NUR ---
MADE ROUNDS, PATIENT ASLEEP. NO S/S OF DISTRESS. WILL CONTINUE TO MONITOR.
[2017-07-10] VITALS: BP 130/71
--- NOTE | 2017-07-10 | NUR ---
VITAL SIGNS TAKEN. NO S/S OF DISTRESS. NO COMPLAINTS OF PAIN. WILL CONTINUE TO MONITOR. ALL NEEDS ATTENDED. CALL LIGHT WITHIN REACH. SAFETY CHECKS IN PLACE.
--- NOTE | 2017-07-10 02:01 | NUR ---
MADE ROUNDS. PATIENT ASLEEP. NO S/S OF DISTRESS. WILL CONTINUE TO MONITOR. CALL LIGHT WITHIN REACH.
[2017-07-10] MEDS: NACL 0.9% 1,000 ML IV SCH (04:31)
[2017-07-10 06:03] LABS: HEMATOCRIT 40.1 % (36-52); HEMOGLOBIN 13.2 g/dL (12.0-18.0); MEAN CORPUSCULAR HEMOGLOBIN 26 pg (27-31); MEAN CORPUSCULAR HGB CONC 33 g/dL (33-37); MEAN CORPUSCULAR VOLUME 80 fL (80-94); PLATELET COUNT (AUTO) 227 K/uL (140-450); RED BLOOD CELL COUNT(AUTO) 5.01 MIL/uL (4.20-6.10); RED CELL DISTRIBUTION WIDTH 13.4 % (11.6-13.7); WHITE BLOOD COUNT (AUTO) 5.8 K/uL (4.8-10.8)
[2017-07-10 06:20] LABS: CARBON DIOXIDE 24.6 mmol/L (21-32); CREATININE 0.8 mg/dL (0.7-1.3); POTASSIUM 3.6 mmol/L (3.5-5.1)
[2017-07-10] MEDS: INSULIN LISPRO SLIDING SCALE 100 UNITS/ML VIAL SUBQ PRN (06:32)
[2017-07-10] MEDS: GEMFIBROZIL 600 MG TAB PO SCH (06:34)
[2017-07-10] MEDS: BLOOD GLUCOSE MONITORING 1 DEV DEV FS SCH (06:35)
--- NOTE | 2017-07-10 07:10 | NUR ---
ENDORSED TO AM SHIFT FOR CONTINUITY OF CARE IN STABLE CONDITION.
--- NOTE | 2017-07-10 07:11 | NUR ---
RECEIVED REPORT FROM ZIPPER REPAIRER NURSE AT BEDSIDE FOR CONTINUITY OF CARE. PT IS AWAKE AND ORIENTED. INTRODUCED SELF AND UPDATED BOARD.
[2017-07-10 07:22] LABS: EOSINOPHILS % (MANUAL) 2 % (0-4); LYMPHOCYTES % (MANUAL) 22 % (20-46); MONOCYTES % (MANUAL) 6 % (5-12)
[2017-07-10 07:37] VITALS: BP 149/88
[2017-07-10] MEDS: HYDROCHLOROTHIAZIDE 25 MG TAB PO SCH (08:19)
[2017-07-10] MEDS: PIOGLITAZONE 15 MG TAB PO SCH (08:19)
[2017-07-10] MEDS: metFORMIN 500 MG TAB PO SCH (08:19)
--- NOTE | 2017-07-10 08:19 | NUR ---
PT IS A/O X4. VS ARE WNL. PT DENIES PAIN AT THIS TIME. IV IS ON RIGHT HAND 22G NS AT 100ML/HR. PT IS AMBULATORY AND BRP. PT IS ON RA. SKIN IS INTACT. LBM 07/09. URINAL AT BEDSIDE. CALL LIGHT WITHIN REACH, BED IN LOW POSITION AND INSTRUCTED TO USE CALL LIGHT WHEN NEED OF ASSISTANCE. PT VERBALIZED UNDERSTANDING. ADMINISTERED SCHEDULED MEDICATIONS. PT TOLERATED PO AND SUBQ MEDS WELL. WILL CONTINUE TO MONITOR.
[2017-07-10] MEDS: INSULIN DETEMIR 100 UNITS/ML 10 ML VIAL SUBQ SCH (08:30)
[2017-07-10] MEDS ORDERED: LISI10TA11 PO (09:18)
[2017-07-10] MEDS ORDERED: LEVEMIR SUBQ (09:18)
[2017-07-10] MEDS ORDERED: ORE25 PO (09:18)
[2017-07-10] MEDS ORDERED: PIOG15TA13 PO (09:18)
[2017-07-10] MEDS ORDERED: METF500T4 PO (09:18)
[2017-07-10] MEDS ORDERED: GEMF600T8 PO (09:18)
--- NOTE | 2017-07-10 10:40 | NUR ---
GAVE DISCHARGE INFORMATION AND EDUCATED PT RE. DIABETES, IMPORTANCE OF DIET AND EXERCISE, AND MEDICATION. PT VERBALIZED UNDERSTANDING. SIGNED ALL APPROPRIATE DOCUMENTATION. REMOVED IV, CANNULA INTACT. NO BLEEDING NOTED. WILL GET DRESSED AND CALL HIS TO COME PICK HIM UP. WILL GATHER PERSONAL BELONGINGS. WILL LET US KNOW WHEN HE IS READY TO GO.
--- NOTE | 2017-07-10 11:30 | NUR ---
PT DISCHARGED AND LEFT UNIT WITH ALL PERSONAL BELONGINGS. ACCOMPANIED BY FAMILY. PT IS IN STABLE CONDITION.
== END 2017-07-10 11:30 | disposition home or self-care (01) | DRG 420 ==
LOC: MED 14:58 → MTU 17:41
PROVIDERS: ADMIT Preventive Medicine Preventive Medicine/Occupational Environmental Medicine; ATTEND Preventive Medicine Preventive Medicine/Occupational Environmental Medicine
DX: E11.00 Type 2 diabetes mellitus with hyperosmolarity without nonketotic hyperglycemic-hyperosmolar coma (NKHHC) (principal); E88.81 Metabolic syndrome and other insulin resistance; E11.65 Type 2 diabetes mellitus with hyperglycemia; Z68.41 Body mass index [BMI] 40.0-44.9, adult; I10 Essential (primary) hypertension; E66.01 Morbid (severe) obesity due to excess calories; F15.10 Other stimulant abuse, uncomplicated; F17.210 Nicotine dependence, cigarettes, uncomplicated; E86.0 Dehydration; Z87.898 Personal history of other specified conditions; Z83.3 Family history of diabetes mellitus; Z79.84 Long term (current) use of oral hypoglycemic drugs
CPT/HCPCS: 36415; 36600; 71010; 80048; 80053; 80305; 81001; 82009; 82803; 82948; 83036; 83605; 83690; 83735; 84100; 84484; 85025; 87081; 90732; 93005; 96360; 96361; 96372; 99285; J1815; J3475; J7030

== ENCOUNTER 2018-02-02 12:12 | Emergency (ER) | payer SELFPAY ==
[~2018-02-02] VITALS: Ht 165.1 cm; Wt 117.3 kg
[~2018-02-02 12:12] MED LIST: ACT15 PO; GEMF600T8 PO; LEVEMIR SUBQ; LISI10TA11 PO; METF500T4 PO; ORE25 PO
[2018-02-02 12:28] VITALS: BP 151/93
--- NOTE | 2018-02-02 12:32 | NUR ---
PT AA&OX4 WITH EVEN AND STEADY GAIT; PT TO LOBBY AWAITING OPEN BED.
[2018-02-02] MEDS ORDERED: INSULIN REGULAR, HUMAN 100 UNIT/ML VIAL SUBQ ONE (12:45)
--- NOTE | 2018-02-02 15:00 | NUR ---
42M BIB FAMILY C/O HIGH BLOOD SUGAR X 4 DAYS. PT STATES RAN OUT OF MEDICATION X 4 DAYS AGO. PT HAS HX DM, HTN. PT DENIES N/V. NO VISUAL DISTURBANCES. DENIES DIFFICULTY BREATHING OR RESPIRATORY CHANGES. DENIES CLEMENTS. DENIES CHILLS/FEVER. ER MD SMALLWOOD AWARE OF PT CONDITION. SAFETY PRECAUTIONS IN PLACE. PT NEEDS MET AT THIS TIME. WILL CONTINUE TO MONITOR.
--- NOTE | 2018-02-02 16:42 | NUR ---
PT REQUESTING TO GO HOME. MD SMALLWOOD NOTIFIED. WILL CONTINUE TO MONITOR.
[2018-02-02 17:03] VITALS: BP 134/68
--- NOTE | 2018-02-02 17:04 | NUR ---
Patient discharged with v/s stable. Written and verbal after care instructions given and explained. Patient alert, oriented and verbalized understanding of instructions. Ambulatory with steady gait. All questions addressed prior to discharge. ID band removed. Patient advised to follow up with PMD. Rx of METFORMIN, LISINOPRIL, PIOGLITAZONE, GEMFIBROZIL given. Patient educated on indication of medication including possible reaction and side effects. Opportunity to ask questions provided and answered.
--- NOTE | 2018-02-10 07:44 | NUR ---
Late entry for 02/02/18. Insulin administration of 14 Units Humulin. Start time 1457 End time 1455
== END 2018-02-02 17:04 | disposition home or self-care (01) ==
LOC: MED 12:12
DX: E11.9 Type 2 diabetes mellitus without complications (principal); I10 Essential (primary) hypertension; E78.00 Pure hypercholesterolemia, unspecified; Z79.899 Other long term (current) drug therapy; Z79.4 Long term (current) use of insulin; Z79.84 Long term (current) use of oral hypoglycemic drugs
CPT/HCPCS: 82948; 96372; 99283; J1815

== ENCOUNTER 2018-04-13 12:42 | Emergency (ER) | payer SELFPAY ==
[~2018-04-13] VITALS: Ht 167.6 cm; Wt 117.0 kg
[~2018-04-13 12:42] MED LIST changes: -ACT15 PO; +PIOG15TA84 PO
[2018-04-13 12:46] VITALS: BP 139/77
[2018-04-13] MEDS: METOCLOPRAMIDE 10 MG/2 ML INJ VIAL IVP ONE (13:41)
[2018-04-13 14:04] LABS: BASOPHILS # (AUTO) 0.1 K/uL (0.00-0.22); EOSINOPHILS # (AUTO) 0.1 K/uL (0-0.4); EOSINOPHILS % (AUTO) 1.4 % (0.0-4.0); HEMATOCRIT 43.7 % (36-52); HEMOGLOBIN 14.3 g/dL (12.0-18.0); LYMPHOCYTES # (AUTO) 1.5 K/uL (2.0-11.5); LYMPHOCYTES % (AUTO) 24.9 % (20.5-51.1); MEAN CORPUSCULAR HEMOGLOBIN 26 pg (27-31); MEAN CORPUSCULAR HGB CONC 33 g/dL (33-37); MEAN CORPUSCULAR VOLUME 79.3 fL (80-94); NEUTROPHILS # (AUTO) 4.1 K/uL (1.8-7.7); NEUTROPHILS % (AUTO) 65.7 % (42.2-75.2); PLATELET COUNT (AUTO) 231 K/uL (140-450); RED BLOOD CELL COUNT(AUTO) 5.51 MIL/uL (4.20-6.10); RED CELL DISTRIBUTION WIDTH 14.1 % (11.6-13.7); WHITE BLOOD COUNT (AUTO) 6.2 K/uL (4.8-10.8)
[2018-04-13 14:19] LABS: ALBUMIN 3.7 g/dL (3.4-5.0); ANION GAP 10.7 (8-16); CARBON DIOXIDE 28.2 mmol/L (21-32); CREATININE 0.8 mg/dL (0.7-1.3); POTASSIUM 3.9 mmol/L (3.5-5.1); TOTAL BILIRUBIN 0.4 mg/dL (0.0-1.0)
[2018-04-13 14:20] LABS: BILIRUBIN,URINE NEGATIVE (NEGATIVE); BLOOD, URINE 1+ (NEGATIVE); COLOR,URINE YELLOW (YELLOW); LEUKOCYTE ESTERASE ,URINE 1+ (NEGATIVE); NITRITE, URINE NEGATIVE (NEGATIVE); UGLUCOSE 3+ (NEGATIVE)
[2018-04-13 14:25] LABS: APPEARANCE,URINE SLIGHTLY HAZY (CLEAR)
[2018-04-13 14:38] LABS: RBC,URINE 0-5 (RARE) /HPF (0-5); WBC,URINE 16-25 (MOD) /HPF (0-5)
[2018-04-13] MEDS: INSULIN REGULAR, HUMAN 100 UNIT/ML VIAL SUBQ ONE (15:01)
[2018-04-13] MEDS: NACL 0.9% 1,000 ML IV ONE (15:56)
[2018-04-13] MEDS: NACL 0.9% 1,000 ML IV SCH (16:00)
[2018-04-13 16:40] VITALS: BP 142/83
== END 2018-04-13 16:40 | disposition home or self-care (01) ==
LOC: MED 12:42
DX: I10 Essential (primary) hypertension (principal); E11.9 Type 2 diabetes mellitus without complications; Z79.899 Other long term (current) drug therapy
CPT/HCPCS: 36415; 80053; 81001; 82948; 85025; 87086; 93005; 96361; 96374; 99285; J1815; J2765; J7030

== ENCOUNTER 2018-07-11 07:33 | Emergency (ER) | payer SELFPAY ==
[~2018-07-11] VITALS: Ht 167.6 cm; Wt 114.8 kg
[~2018-07-11 07:33] MED LIST changes: -METF500T4 PO; +METF500T6 PO
[2018-07-11 07:37] VITALS: BP 164/98
--- NOTE | 2018-07-11 07:45 | NUR ---
Patient ambulated to bed 4. RN evaluating patient at bedside.
--- NOTE | 2018-07-11 07:49 | NUR ---
42 YO M WITH C/O BL EYE REDNESS WITH PAIN X 2 DAYS ; DENIES INJURY OR DOUBLE VISION. PT STATES THAT HE HAS BEEN RUBBING HIS EYES. MILD SCLARAL REDNESS WITH BILATERAL EYE PUFFINESS. PT DENIES AND HEADACHES, CHEMICAL EXPOSURE, OR CONTACT USE. NO OTHER MEDICAL CO AT THIS TIME. ER MD MADE AWARE. WILL CONTINUE TO MONITOR. PT POSITIONED FOR COMFORT. HX; HTN, DM, HYPERCHOLESTEROL RX; "RUN OUT" BS: 110
--- NOTE | 2018-07-11 07:55 | NUR ---
Dr. Castillo evaluating patient at bedside.
[2018-07-11 08:10] VITALS: BP 164/98
--- NOTE | 2018-07-11 08:10 | NUR ---
Patient discharged with v/s stable. Written and verbal after care instructions given and explained. Patient alert, oriented and verbalized understanding of instructions. Ambulatory with steady gait. All questions addressed prior to discharge. ID band removed. Patient advised to follow up with PMD. Rx of HYDROCHLOROTHIAZIDE, LISIINOPRIL, ACTOS, METFORMIN, KETOTIFEN, GEMFIBRIZIL given. Patient educated on indication of medication including possible reaction and side effects. Opportunity to ask questions provided and answered.
== END 2018-07-11 08:10 | disposition home or self-care (01) ==
LOC: MED 07:33
DX: H10.13 Acute atopic conjunctivitis, bilateral (principal); E11.9 Type 2 diabetes mellitus without complications; I10 Essential (primary) hypertension; E78.5 Hyperlipidemia, unspecified; Z79.899 Other long term (current) drug therapy
CPT/HCPCS: 82948; 99283

== ENCOUNTER 2018-11-19 21:50 | Emergency (ER) | payer SELFPAY ==
[~2018-11-19] VITALS: Ht 167.6 cm; Wt 119.3 kg
[~2018-11-19 21:50] MED LIST changes: +GEMF-65 PO; -GEMF600T8 PO; +METF-988 PO; -METF500T6 PO
[2018-11-19 22:03] VITALS: BP 147/111
--- NOTE | 2018-11-19 22:10 | NUR ---
PT AMBULATED TO BED 5.
--- NOTE | 2018-11-19 22:25 | NUR ---
BIB SON C/O OF LOWER RIGHT GLUTEUS ABCESS X3 DAYS. PT STATES ABCESS HAD DISCHARGE 2 HOURS AGO DISCRIBED COLOR THICK YELLOW DISCHARGE MIXED WITH BLOOD. ABCESS IS MODERATE REDNESS, WARM TO TOUCH, SWELLING NOTED. PHM: DM, HTN, HYPERLIPIDEMIA
[2018-11-19] MEDS ORDERED: NACL 0.9% 1,000 ML IV ONE (22:53)
[2018-11-19] MEDS ORDERED: PIPERACILLIN/TAZOBACTAM 3.375 GM in DEXTROSE 5% 50 ML IV ONE (22:55)
[2018-11-19] MEDS ORDERED: KETOROLAC 30 MG/ML VIAL IVP ONE (22:55)
--- NOTE | 2018-11-19 23:00 | NUR ---
IV START: L AC 18G, BLOOD CULTURES COLLECTED AND SENT WITH DIRECTOR OF CASINO MARKETING.
[2018-11-19 23:36] LABS: BASOPHILS # (AUTO) 0.1 K/uL (0.00-0.22); BASOPHILS % (AUTO) 1.2 % (0.0-2.0); EOSINOPHILS # (AUTO) 0.1 K/uL (0-0.4); EOSINOPHILS % (AUTO) 1.4 % (0.0-4.0); HEMOGLOBIN 13.7 g/dL (12.0-18.0); LYMPHOCYTES # (AUTO) 1.5 K/uL (2.0-11.5); LYMPHOCYTES % (AUTO) 22.7 % (20.5-51.1); MEAN CORPUSCULAR HEMOGLOBIN 26 pg (27-31); MEAN CORPUSCULAR HGB CONC 33 g/dL (33-37); MEAN CORPUSCULAR VOLUME 78.8 fL (80-94); MONOCYTES # (AUTO) 0.5 K/uL (0.8-1.0); MONOCYTES % (AUTO) 7.3 % (1.7-9.3); NEUTROPHILS # (AUTO) 4.5 K/uL (1.8-7.7); NEUTROPHILS % (AUTO) 67.4 % (42.2-75.2); PLATELET COUNT (AUTO) 227 K/uL (140-450); RED BLOOD CELL COUNT(AUTO) 5.21 MIL/uL (4.20-6.10); RED CELL DISTRIBUTION WIDTH 13.8 % (11.6-13.7); WHITE BLOOD COUNT (AUTO) 6.7 K/uL (4.8-10.8)
[2018-11-19] MEDS ORDERED: PIPERACILLIN/TAZOBACTAM 3.375 GM VIAL IV ONE (23:42)
[2018-11-19 23:50] LABS: PROTHROMBIN TIME 9.6 secs (10.8-13.4)
[2018-11-20 00:03] LABS: ALBUMIN 3.6 g/dL (3.4-5.0); ANION GAP 14.1 (8-16); CARBON DIOXIDE 25.8 mmol/L (21-32); CREATININE 0.9 mg/dL (0.7-1.3); POTASSIUM 3.9 mmol/L (3.5-5.1); TOTAL BILIRUBIN 0.4 mg/dL (0.0-1.0)
--- NOTE | 2018-11-20 00:26 | NUR ---
PT TAKEN TO CT VIA [facility] BY CHIP.
--- NOTE | 2018-11-20 00:43 | NUR ---
PT BACK FROM CT. SAFETY MEASURES IN PLACE. WILL CONTINUE TO MONITOR.
--- NOTE | 2018-11-20 01:19 | NUR ---
Pt report given to Kassidy SAUNDERS. Transfer of care at this time.
[2018-11-20] MEDS ORDERED: NACL 0.9% 1,000 ML IV ONE (01:35)
--- NOTE | 2018-11-20 01:35 | NUR ---
ASSUMED CARE OF PT AT THIS TIME, PT IN BED, WILL CONTINUE TO MONITOR.
[2018-11-20 02:35] VITALS: BP 125/66
--- NOTE | 2018-11-20 02:37 | NUR ---
Patient discharged with v/s stable. Written and verbal after care instructions given and explained. Patient alert, oriented and verbalized understanding of instructions. Ambulatory with steady gait. All questions addressed prior to discharge. ID band removed. Patient advised to follow up with PMD. Rx of BACTRIM,KEFLEX,METFORMIN,LISINOPRIL given. Patient educated on indication of medication including possible reaction and side effects. Opportunity to ask questions provided and answered.
== END 2018-11-20 02:36 | disposition home or self-care (01) ==
LOC: MED 21:50
DX: L03.317 Cellulitis of buttock (principal); E11.9 Type 2 diabetes mellitus without complications; I10 Essential (primary) hypertension; E78.5 Hyperlipidemia, unspecified; Z79.84 Long term (current) use of oral hypoglycemic drugs; Z79.899 Other long term (current) drug therapy
CPT/HCPCS: 36415; 72193; 80053; 83605; 85025; 85610; 87040; 96365; 96375; 99284; J1885; J2543; J7030

== ENCOUNTER 2020-01-06 15:42 | Emergency (ER) | payer SELFPAY ==
[~2020-01-06] VITALS: Ht 165.1 cm; Wt 115.2 kg
[~2020-01-06 15:42] MED LIST changes: -GEMF-65 PO; -LEVEMIR SUBQ; -ORE25 PO; -PIOG15TA84 PO
[2020-01-06 15:54] VITALS: BP 150/100
--- NOTE | 2020-01-06 16:16 | NUR ---
TO TO ER CHAIR B Addendum: 01/06/20 at 1616 by MEDRJJ AMB
--- NOTE | 2020-01-06 16:22 | NUR ---
RECEVIED A 44/M FROM [email or web address] FOR L #1 TOE PAIN. PT REPORTS HISTORY OF INGROWN TOENAILS. MILD REDNESS AND SWELLING NOTED TO L #1 TOE. AMBUALTORY FROM [email or web address].
--- NOTE | 2020-01-06 16:50 | NUR ---
Patient discharged with v/s stable. Written and verbal after care instructions given and explained. Patient alert, oriented and verbalized understanding of instructions. Ambulatory with steady gait. All questions addressed prior to discharge. ID band removed. Patient advised to follow up with PMD. Rx of KEFLEX given. Patient educated on indication of medication including possible reaction and side effects. Opportunity to ask questions provided and answered. PT VERBALIZED UNDERSTANDING TO FOLLOW UP PODIATRY ON WEDNESDAY.
[2020-01-06 16:51] VITALS: BP 147/88
== END 2020-01-06 16:50 | disposition home or self-care (01) ==
LOC: MED 15:42
DX: L60.0 Ingrowing nail (principal); E11.9 Type 2 diabetes mellitus without complications; E78.5 Hyperlipidemia, unspecified; Z79.84 Long term (current) use of oral hypoglycemic drugs; Z79.899 Other long term (current) drug therapy
CPT/HCPCS: 99283

== ENCOUNTER 2024-01-02 14:26 | Emergency (ER) | payer MEDICAID ==
[~2024-01-02] VITALS: Ht 167.6 cm; Wt 113.4 kg
[~2024-01-02 14:26] MED LIST changes: -LISI10TA11 PO; +LISI10TA30 PO; +METF-1243 PO; -METF-988 PO
[2024-01-02 14:35] VITALS: BP 132/84; PULSE 99; RESP 18; TEMP 98.6; O2SAT 94
[2024-01-02] MEDS: ONDANSETRON 4 MG ODT PO ONE (15:39)
[2024-01-02] MEDS: FAMOTIDINE 20 MG TAB PO ONE (15:40)
[2024-01-02] MEDS: ALUMINUM HYD/MAG/SIMETHICONE 30 ML UDC PO ONE (15:41)
[2024-01-02 16:04] LABS: BASOPHILS % (AUTO) 0.3 % (0.0-2.0); EOSINOPHILS # (AUTO) 0.1 K/uL (0-0.4); EOSINOPHILS % (AUTO) 0.5 % (0.0-4.0); HEMATOCRIT 43.6 % (36-52); HEMOGLOBIN 14.8 g/dL (12.0-18.0); LYMPHOCYTES # (AUTO) 0.7 K/uL (2.0-11.5); LYMPHOCYTES % (AUTO) 5.3 % (20.5-51.1); MEAN CORPUSCULAR HEMOGLOBIN 27 pg (27-31); MEAN CORPUSCULAR HGB CONC 34 g/dL (33-37); MEAN CORPUSCULAR VOLUME 80.1 fL (80-94); MONOCYTES # (AUTO) 0.5 K/uL (0.8-1.0); MONOCYTES % (AUTO) 4.1 % (1.7-9.3); NEUTROPHILS # (AUTO) 11.2 K/uL (1.8-7.7); NEUTROPHILS % (AUTO) 89.8 % (42.2-75.2); PLATELET COUNT (AUTO) 242 K/uL (140-450); RED BLOOD CELL COUNT(AUTO) 5.45 MIL/uL (4.20-6.10); RED CELL DISTRIBUTION WIDTH 13.7 % (11.6-13.7); WHITE BLOOD COUNT (AUTO) 12.5 K/uL (4.8-10.8)
[2024-01-02 16:15] LABS: ANION GAP 12.1 (8-16); CALCIUM 8.3 mg/dL (8.5-10.1); CARBON DIOXIDE 30.6 mmol/L (21-32); CREATININE 0.7 mg/dL (0.6-1.3); POTASSIUM 3.7 mmol/L (3.5-5.1)
[2024-01-02 16:26] LABS: ALANINE AMINOTRANSFERASE 110 U/L (12-78); ALBUMIN 3.5 g/dL (3.4-5.0); ALKALINE PHOSPHATASE 117 U/L (50-136); ASPARTATE AMINOTRANSFERASE 64 U/L (15-37); BILIRUBIN,DIRECT 0.1 mg/dL (0.0-0.3); LIPASE 66 U/L (16-77); TOTAL BILIRUBIN 0.6 mg/dL (0.0-1.0); TOTAL PROTEIN, SERUM 8.4 g/dL (6.4-8.2)
[2024-01-02] MEDS ORDERED: LISI-486 PO (17:11)
[2024-01-02] MEDS ORDERED: METF-1243 PO (17:11)
[2024-01-02] MEDS ORDERED: FAMO-90 PO (17:11)
[2024-01-02] MEDS ORDERED: ONDA-188 PO (17:11)
[2024-01-02 17:25] VITALS: BP 161/94; PULSE 89; RESP 26; TEMP 98.6; O2SAT 95
== END 2024-01-02 17:25 | disposition home or self-care (01) ==
LOC: MED 14:26
DX: K29.70 Gastritis, unspecified, without bleeding (principal); E11.65 Type 2 diabetes mellitus with hyperglycemia; F10.90 Alcohol use, unspecified, uncomplicated; E11.9 Type 2 diabetes mellitus without complications; Z79.4 Long term (current) use of insulin; Z79.899 Other long term (current) drug therapy; Y90.9 Presence of alcohol in blood, level not specified
CPT/HCPCS: 36415; 80048; 80076; 82948; 83690; 84484; 85025; 93005; 99284; Q0162